=== PATIENT | male | born 1955 | race Asian ===

== ENCOUNTER 2024-03-30 14:21 | Emergency (ER) | payer OTHER, MEDICARE ==
[~2024-03-30] VITALS: Ht 170.2 cm; Wt 80.3 kg
[2024-03-30 14:21] VITALS: BP_SYST 109; PULSE 111; RESP 18; TEMP 97.1; O2SAT 95
[2024-03-30] MEDS ORDERED: CLOP75TA32 PO (14:53)
[2024-03-30] MEDS ORDERED: FOLI-43 PO (14:53)
[2024-03-30] MEDS ORDERED: ENTA200T3 PO (14:53)
[2024-03-30] MEDS ORDERED: SELE5TAB6 PO (14:53)
[2024-03-30] MEDS ORDERED: CARB-317 PO (14:53)
[2024-03-30] MEDS ORDERED: CARV3.1246 PO (14:53)
[2024-03-30] MEDS: NACL 0.9% 1,000 ML IV ONE (15:08)
[2024-03-30 15:24] LABS: BASOPHILS # (AUTO) 0.1 K/uL (0.0-0.2); BASOPHILS % (AUTO) 0.9 % (0.0-2.0); EOSINOPHILS # (AUTO) 0.2 K/uL (0.0-0.4); EOSINOPHILS % (AUTO) 2.6 % (0.0-4.0); HEMOGLOBIN 14.2 g/dL (14.0-18.0); LYMPHOCYTES % (AUTO) 16.5 % (20.5-51.5); MEAN CORPUSCULAR HEMOGLOBIN 31 pg (27-31); MEAN CORPUSCULAR HGB CONC 35 % (32-36); MEAN CORPUSCULAR VOLUME 90 fL (79.0-98.0); MONOCYTES # (AUTO) 0.5 K/uL (0.0-1.0); MONOCYTES % (AUTO) 7.3 % (1.7-9.3); NEUTROPHILS # (AUTO) 4.5 K/uL (1.8-7.7); NEUTROPHILS % (AUTO) 72.7 % (40.0-70.0); PLATELET COUNT (AUTO) 273 K/uL (130-430); RED BLOOD CELL COUNT(AUTO) 4.54 MIL/uL (4.2-6.2); RED CELL DISTRIBUTION WIDTH 13.8 % (9.0-15.0); WHITE BLOOD COUNT (AUTO) 6.2 K/uL (4.8-10.8)
[2024-03-30 15:43] LABS: ALANINE AMINOTRANSFERASE 41 U/L (12-78); ALBUMIN 3.5 g/dL (3.4-4.8); ANION GAP 10 (5-15); ASPARTATE AMINOTRANSFERASE 42 U/L (10-37); BILIRUBIN,DIRECT 0.2 mg/dL (0.0-0.3); CALCIUM 8.6 mg/dL (8.4-11.0); CARBON DIOXIDE 25 mmol/L (23-29); CHLORIDE 106 mmol/L (98-107); CREATININE 1.13 mg/dL (0.55-1.30); GFR AFRICAN AMERICAN 83 mL/min (>90); GLUCOSE 108 mg/dL (74-106); POTASSIUM 3.8 mmol/L (3.5-5.1); PROTHROMBIN TIME 10.2 SECS (9.5-12.5); SODIUM SERUM 141 mmol/L (136-145); TOTAL BILIRUBIN 0.7 mg/dL (0.0-1.0); TOTAL PROTEIN, SERUM 6.6 g/dL (6.4-8.3); UREA NITROGEN, BLOOD 13 mg/dL (8-21)
[2024-03-30 15:49] LABS: GFR NON AFRICAN-AMERICAN 69 mL/min (>90)
[2024-03-30] MEDS: ENTACAPONE 200 MG TAB PO ONE (16:53)
[2024-03-30] MEDS: CARBIDOPA/LEVODOPA 25/250 MG TABLET PO ONE (16:54)
[2024-03-30] MEDS: SELEGILINE HCL 5 MG TAB PO ONE (17:02)
[2024-03-30 18:52] LABS: BILIRUBIN,URINE NEGATIVE (NEGATIVE); COLOR,URINE YELLOW (YELLOW); GLUCOSE,URINE NEGATIVE (NEGATIVE); KETONES,URINE NEGATIVE (NEGATIVE); LEUKOCYTE ESTERASE ,URINE NEGATIVE (NEGATIVE); NITRITE, URINE NEGATIVE (NEGATIVE); PROTEIN URINE 1+ (NEGATIVE); UROBILINOGEN,URINE 0.2 (0.2-1.0)
[2024-03-30 19:04] LABS: BLOOD, URINE TRACE (NEGATIVE)
[2024-03-30 19:05] LABS: CLARITY/URINE SLIGHTLY HAZY (CLEAR)
[2024-03-30 19:32] LABS: BACTERIA,URINE FEW /HPF (None Seen); FINE GRANULAR CASTS,URINE 0-10 /LPF (None Seen); MUCUS,URINE None Seen /LPF (None Seen); RBC,URINE 0-3 /HPF (0-3); WBC,URINE 0-3 /HPF (0-3)
[2024-03-30 20:04] LABS: INFLUENZA TYPE A Negative (NEGATIVE); INFLUENZA TYPE B NEGATIVE (NEGATIVE)
[2024-03-30 20:05] VITALS: TEMP 97.8
[2024-03-30] MEDS: MAGNESIUM CITRATE 300 ML ORAL SOLUTION PO ONE (20:53)
[2024-03-30 20:54] VITALS: O2SAT 95
[2024-03-30 21:20] VITALS: BP_SYST 135; PULSE 77; RESP 20
== END 2024-03-30 21:16 | disposition home or self-care (01) ==
LOC: SED 14:21
DX: K59.00 Constipation, unspecified (principal); R53.1 Weakness; R61 Generalized hyperhidrosis; I10 Essential (primary) hypertension; Z79.02 Long term (current) use of antithrombotics/antiplatelets; Z79.899 Other long term (current) drug therapy; Z20.822 Contact with and (suspected) exposure to COVID-19
CPT/HCPCS: 99285; 96360; 71045; 87426; 80076; 80048; 81001; 85025; 85610; 85730; 87040; 87086; 84484; 36415; 93005; 83605; 87804 ×2; 81000; 81015; J7030